=== PATIENT | female | born 1990 | race African-American/Black ===

== ENCOUNTER 2016-05-19 04:38 | Inpatient (IN) | payer OTHER ==
[2016-05-19] MEDS ORDERED: DEXTROSE 5%-LACTATED RINGERS 1,000 ML IV ONE (05:30)
[2016-05-19 05:56] LABS: BASOPHIL 0.2 % (0-2.0); EOSINOPHIL 1.3 % (0-4.5); MEAN PLT VOLUME 10.6 fl (7.5-11.1); NEUTROPHILS 62.9 % (42.8-82.8); PLATELET COUNT 151 K/MM3 (134-434); RDW 13.9 % (11.6-15.6)
--- NOTE | 2016-05-19 06:08 | PN ---
Progress Note (short form) - Note Progress Note: cx 4 cm 70 vx -2 mr, light mec , fhr cat mild variable, will apply scalp electrode , and revaluate
[2016-05-19 06:10] LABS: INR 0.99 (0.82-1.09); PROTHROMBIN TIME (PATIENT) 10.9 SEC (9.98-11.88)
[2016-05-19 06:13] LABS: ACTIVATED PTT 28.2 SECONDS (26.9-34.4)
[2016-05-19 06:30] LABS: ALBUMIN 3.1 g/dl (3.4-5.0); ANION GAP 13 (8-16); BILIRUBIN,TOTAL 0.2 mg/dL (0.2-1.0); CALCIUM 8.8 mg/dL (8.5-10.1); CO2 21 mmol/L (21-32); CREATININE 0.6 mg/dL (0.55-1.02); GLUCOSE,RANDOM 137 mg/dL (74-106); SGOT/AST 12 U/L (15-37); SGPT/ALT 12 U/L (12-78); TOT PROT 6.7 g/dl (6.4-8.2)
[2016-05-19] MEDS ORDERED: AMPICILLIN - 2 GM in SODIUM CHLORIDE 100 ML IVPB ONE (06:30)
[2016-05-19 06:31] LABS: ALK PHOS 138 U/L (45-117)
[2016-05-19 07:39] LABS: HIV 1 & 2 AB NEGATIVE; HIV 1 AGp24 NEGATIVE
[2016-05-19] MEDS ORDERED: BUTORPHANOL TARTRATE 1 MG/ML VIAL IVPUSH ONE (07:45)
[2016-05-19] MEDS ORDERED: PROMETHAZINE HCL 25 MG/1 ML VIAL IVPUSH ONE (07:45)
[2016-05-19 07:51] VITALS: BMI 35.9
[2016-05-19] MEDS ORDERED: OXYTOCIN 15 UNITS/ LR 250 ML 250 ML IV SCH (08:00)
--- NOTE | 2016-05-19 08:54 | HP ---
Past Medical History - Primary Care Physician PCP:: Efrain Wayne - Admission Chief Complaint: 39 weeks , rom, labor History of Present Illness: 25 yo f edc by 05/24/16 c/o rom since 420 am today, pain since 3 15 am, no bleeding , no fever , cx 4 cm 75 vx -2 fhr cat 1, light mec stain af , no care since mar 2016 History Source: Patient Limitations to Obtaining History: No Limitations - Past Medical History Pulmonary: Yes: Asthma (on no meds) ...: 2 ...Para: 1 ...Term: 1 ... Weeks Gestation by Dates: 39.1 ...EDC by Dates: 05/24/16 - Past Surgical History Hx Myomectomy: No Hx Transabdominal Cerclage: No - Smoking History Smoking history: Never smoked Have you smoked in the past 12 months: No Aproximately how many cigarettes per day: 0 - Alcohol/Substance Use Hx Alcohol Use: No - Social History Usual Living Arrangement: Yes: With Spouse History of Recent Travel: No Home Medications - Allergies Allergies/Adverse Reactions: Allergies Allergy/AdvReac Type Severity Reaction Status Date / Time No Known Allergies Allergy Verified 05/19/16 08:18 - Home Medications Home Medications: Ambulatory Orders Vit Calc,Iron,Folic [ Vitamins] 1 each PO DAILY 05/19/16 Review of Systems - Review of Systems Constitutional: reports: No Symptoms Eyes: reports: No Symptoms HENT: reports: No Symptoms Neck: reports: No Symptoms Cardiovascular: reports: No Symptoms Respiratory: reports: No Symptoms Gastrointestinal: reports: No Symptoms Genitourinary: reports: No Symptoms Breasts: reports: No Symptoms Reported Musculoskeletal: reports: No Symptoms Integumentary: reports: No Symptoms Neurological: reports: No Symptoms Endocrine: reports: No Symptoms Hematology/Lymphatic: reports: No Symptoms Psychiatric: reports: No Symptoms Physical Exam - Maternity Vital Signs: Vital Signs Temperature 97.8 F 05/19/16 04:38 Pulse Rate 97 H 05/19/16 04:38 Respiratory Rate 20 05/19/16 04:38 Blood Pressure 124/65 05/19/16 04:38 O2 Sat by Pulse Oximetry (%) Constitutional: Yes: Well Nourished, No Distress, Calm Eyes: Yes: WNL, Conjunctiva Clear, EOM Intact HENT: Yes: WNL, Atraumatic, Normocephalic Neck: Yes: WNL, Supple, Trachea Midline Cardiovascular: Yes: WNL, Regular Rate and Rhythm Breast(s): Yes: WNL - Abdominal Exam/OB Number of Fetuses: Single Presentation: Vertex Contractions: Yes Regularity: Irregular Intensity: Mod/Strong Monitor Mode: External Heart Rate Location: [facility] Category: I Accelerations: Non-Uniform Decelerations: None - Vaginal Exam/OB Vaginal Bleediing: No Speculum Exam: No Dilatation (cm): 4 cm Effacement (%): 75 Amniotic Membrane Status: Ruptured Nitrazine Test: Positive Amniotic Fluid: Yes: Meconium Stained Presentation: Vertex/Position Station: -2 - Physical Exam Musculoskeletal: Yes: WNL Extremities: Yes: WNL Edema: LLE: Trace, RLE: Trace Deep Tendon Reflex Grade: Normal +2 ...Motor Strength: WNL Psychiatric: Yes: WNL - Labs Lab Results: CBC, BMP 05/19/16 05:30 05/19/16 05:30 Problem List - Problems (1) with 39 completed weeks gestation Code(s): Z3A.39 - 39 WEEKS GESTATION OF (2) membrane rupture Code(s): SFJ4897 - (3) Labor established Code(s): QWU6335 - Assessment/Plan admit, heart monitoring, if irregular contraction may benefit low dose pitocin
[2016-05-19] MEDS ORDERED: FENTANYL/BUPIVACAINE/NS/PF - PCEA - 50 ML DISP.SYRIN EP SCH (09:30)
[2016-05-19] MEDS ORDERED: TUBERCULIN PPD 5 TU/0.1ML SYRINGE (IN PATIENT USE ONLY) ID ONE (11:00)
[2016-05-19] MEDS ORDERED: oxyCODONE HCL 5 MG TABLET PO PRN (11:17)
[2016-05-19] MEDS ORDERED: BISACODYL 10 MG SUPP.RECT RC PRN (11:17)
[2016-05-19] MEDS ORDERED: WITCH HAZEL 50% (TUCKS) 40 PAD/JAR PAD TP PRN (11:17)
[2016-05-19] MEDS ORDERED: BENZOCAINE 20% 57 GM BOTTLE TP PRN (11:17)
[2016-05-19] MEDS ORDERED: BENZOCAINE 28 GM HEMORRHOIDAL OINTMENT TP PRN (11:17)
[2016-05-19] MEDS ORDERED: METHYLERGONOVINE MALEATE 0.2 MG/1 ML AMP IM PRN (11:17)
[2016-05-19] MEDS ORDERED: D5W-LR W/ 20 UNITS OXYTOCIN 1,000 ML IV SCH (11:30)
[2016-05-19 11:53] LABS: ARTERIAL BLOOD GAS BASE EXCESS -2.2 meq/l (-2-2); ARTERIAL BLOOD GAS HCO3 26.3 meq/L (22-26); ARTERIAL BLOOD GAS pH 7.25 (7.35-7.45)
[2016-05-19 11:55] LABS: PT. ON O2? NO
[2016-05-19 11:56] LABS: ARTERIAL BLOOD GAS PO2 14.6 mmHg (80-100)
[2016-05-19] MEDS ORDERED: CARBOPROST TROMETHAMINE 250 MCG/ML AMPUL IM ONE (11:56)
[2016-05-19 11:57] LABS: ARTERIAL BLD GAS O2 SATURATION 21.5 % (90-98.9)
[2016-05-19 11:58] LABS: VENOUS PH 7.36 (7.31-7.41)
[2016-05-19 11:59] LABS: VENOUS BLOOD GAS HCO3 22.8 meq/L (22-29)
--- NOTE | 2016-05-19 12:01 | PN ---
Progress Note (short form) - Note Progress Note: was clalled to evaluate post with vaginal bleeding, vss , awake no laceration, uterus explored manually, no tissue, 200 cc clots removed, uterus buggy plan hemobate Problem List - Problems (1) with 39 completed weeks gestation Code(s): Z3A.39 - 39 WEEKS GESTATION OF (2) membrane rupture Code(s): [id number] - (3) Labor established Code(s): NPQ2859 -
[2016-05-19] MEDS ORDERED: METHYLERGONOVINE MALEATE 0.2 MG/1 ML AMP IM ONE (14:12)
[2016-05-19 14:30] LABS: URINE MARIJUANA THC NEGATIVE ng/ml (CUTOFF=50)
[2016-05-19] MEDS: ACETAMINOPHEN 325 MG TABLET (FP) PO PRN ×2 (15:41→21:29)
[2016-05-19] MEDS: IBUPROFEN 600 MG TABLET (FP) PO PRN ×2 (15:42→21:30)
[2016-05-19 21:26] LABS: URINE APPEARANCE SLCLOUDY; URINE BILIRUBIN NEGATIVE (NEGATIVE); URINE COLOR YELLOW; URINE GLUCOSE (UA) NEGATIVE (NEGATIVE); URINE KETONE NEGATIVE (NEGATIVE); URINE NITRITE NEGATIVE (NEGATIVE); URINE UROBILINOGEN NEGATIVE E.U./dl (0.2-1.0)
[2016-05-19] MEDS: FERROUS SO4 325 MG TABLET (FP) PO SCH (21:31)
[2016-05-19 21:35] LABS: URINE BLOOD 3+ (NEGATIVE); URINE LEUK ESTERASE 1+ (NEGATIVE); URINE PROTEIN 1+ (NEGATIVE)
[2016-05-19 21:38] LABS: URINE MUCUS FEW; URINE RBC 3073 /hpf (0-3); URINE WBC 33 /hpf (3-5)
[2016-05-19 21:47] LABS: URINE MARIJUANA THC NEGATIVE ng/ml (CUTOFF=50)
[2016-05-20 08:50] VITALS: BP 116/69; PULSE 100; TEMP 97.7
[2016-05-20 08:56] LABS: BASOPHIL 0.5 % (0-2.0); EOSINOPHIL 2.3 % (0-4.5); MCH 28.9 pg (25.7-33.7); MCHC 33.8 g/dl (32.0-36.0); MEAN CELL VOLUME 85.4 fl (80-96); MEAN PLT VOLUME 9.6 fl (7.5-11.1); NEUTROPHILS 57.8 % (42.8-82.8); PLATELET COUNT 131 K/MM3 (134-434)
[2016-05-20] MEDS: FERROUS SO4 325 MG TABLET (FP) PO SCH (09:13)
[2016-05-20] MEDS: IBUPROFEN 600 MG TABLET (FP) PO PRN (09:14)
[2016-05-20] MEDS: ACETAMINOPHEN 325 MG TABLET (FP) PO PRN (09:14)
--- NOTE | 2016-05-20 09:26 | PN ---
Progress Note (short form) - Note Progress Note: ppd 1 doing well, no c/o voids ok CBC, BMP 05/20/16 08:00 05/19/16 05:30 Last Vital Signs Temp Pulse Resp BP Pulse Ox 97.7 F 100 H 20 116/69 100 05/20/16 08:49 05/20/16 08:49 05/20/16 08:49 05/20/16 08:49 05/19/16 12:00 abdomen soft, non tender, no cva uterus firm,non tender lochia mild , no excess vaginal bleeding no calf tenderness plan ambulate, observe Problem List - Problems (1) with 39 completed weeks gestation Code(s): Z3A.39 - 39 WEEKS GESTATION OF (2) membrane rupture Code(s): [id number] - (3) Labor established Code(s): [id number] -
[2016-05-20] MEDS ORDERED: PRENATAL VITAMINS W/ FOLIC ACID TABLET (FP) PO SCH (10:00)
[2016-05-20] MEDS ORDERED: SENNOSIDES/DOCUSATE COMBO (SENNA PLUS) TABLET (UD) PO PRN (22:00)
--- NOTE | 2016-06-19 11:23 | DS ---
Physical Exam-[employer] Vital Signs: Vital Signs Temperature 97.7 F 05/20/16 08:49 Pulse Rate 100 H 05/20/16 08:49 Respiratory Rate 20 05/20/16 08:49 Blood Pressure 116/69 05/20/16 08:49 O2 Sat by Pulse Oximetry (%) 100 05/19/16 12:00 Constitutional: Yes: Well Nourished, No Distress, Calm Eyes: Yes: WNL, Conjunctiva Clear, EOM Intact HENT: Yes: WNL, Atraumatic, Normocephalic Neck: Yes: WNL, Supple, Trachea Midline Cardiovascular: Yes: WNL, Regular Rate and Rhythm Respiratory: Yes: WNL, Regular, CTA Bilaterally Gastrointestinal: Yes: WNL ...Rectal Exam: Yes: WNL Renal/: Yes: WNL ....Post : Yes: Uterus firm, Uterus non-tender, Slight lochia rubra Breast(s): Yes: WNL Musculoskeletal: Yes: WNL Extremities: Yes: WNL Edema: No Integumentary: Yes: WNL Neurological: Yes: WNL, Alert, Oriented ...Motor Strength: WNL Psychiatric: Yes: WNL, Alert, Oriented Labs: CBC, BMP 05/20/16 08:00 05/19/16 05:30 Delivery - Delivery Vaginal Delivery: Spontaneous (no complication) Type of Anesthesia: Epidural Episiotomy/Laceration: None EBL (cc): 500 Delivery, Single - Stages of Labor Date 1st Stage Initiatied: 05/19/16 Time 1st Stage Initiated: 03:00 Date 2nd Stage Initiated: 05/19/16 Time 2nd Stage Initiated: 10:55 Date of Delivery: 05/19/16 Time of Delivery: 10:58 Time Placenta Delivered: 11:05 Placenta: Yes: Spontaneous - Condition of Infant Operating Room Coordinator/Machine Bunch Maker Present: No Infant Gender: Female Position: Left, OA Total Hours ROM (Hrs/Mins): 6H5M - 1 Minute Total Score: 9 5 Minutes Total Score: 9 - [place] Feeding Plan Initial Plan: Elected not to breastfeed exclusively throughout hospitalization Discharge Summary Reason For Visit: LABOR ADMIT Procedures: Principal: Condition: Good - Instructions Diet, Activity, Other Instructions: regular diet, follow up office 4 weeks Referrals: Efrain Wayne MD [Staff Physician] - Disposition: HOME - Home Medications Comprehensive Discharge Medication List: Ambulatory Orders Vit Calc,Iron,Folic [ Vitamins] 1 each PO DAILY 05/19/16 Ibuprofen [Motrin -] 600 mg PO QID #28 tablet 05/20/16
== END 2016-05-20 14:30 | disposition home or self-care (01) | DRG 774 ==
LOC: JLDR 04:38 → J3W 15:11
PROVIDERS: ADMIT Obstetrics & Gynecology; ATTEND Obstetrics & Gynecology
PROC: 10E0XZZ Delivery of Products of Conception, External Approach (ICD-10-PCS; principal; 2016-05-19)
PROC: 0UC97ZZ Extirpation of Matter from Uterus, Via Natural or Artificial Opening (ICD-10-PCS; 2016-05-19)
DX: O72.1 Other immediate postpartum hemorrhage (principal); O75.89 Other specified complications of labor and delivery; J45.909 Unspecified asthma, uncomplicated; Z3A.39 39 weeks gestation of pregnancy; Z37.0 Single live birth
CPT/HCPCS: 36415; 36600; 59409; 80053; 80307; 81003; 81015; 82803; 85025; 85610; 85730; 86593; 86762; 86850; 86900; 86901; 87340; 87389

== ENCOUNTER 2016-08-22 14:09 | Emergency (ER) | payer OTHER ==
[2016-08-22 14:13] VITALS: BP 135/85; PULSE 83; TEMP 98.5; BMI 27.2
[2016-08-22] MEDS ORDERED: ALBUTEROL SO4 2.5/IPRATROPIUM 0.5 INH SOL 3 ML VIAL.NEB. NEB ONE ×2 (15:13→15:19)
[2016-08-22] MEDS ORDERED: DEXAMETHASONE 4 MG TABLET (FP) PO ONE (15:20)
[2016-08-22] MEDS ORDERED: DEXAMETHASONE 4 MG TABLET (FP) ONE (15:30)
--- NOTE | 2016-08-22 15:51 | PDOC ---
History of Present Illness - General Chief Complaint: Asthma Stated Complaint: Asthma Time Seen by Provider: 08/22/16 15:04 - History of Present Illness Initial Comments: 08/22/16 19:55 Pt comes to ED with compaints of SOB, using nebulizer every night for the past week. Complains of wheezing, shortness of breath, and unproductive dry cough. Never hospitalized or intubated for her asthma. Denies fevers ear ache, sore throat, pain. No history of recent illness, no sick contacts, no recent travel. Denies smoking or any other exposures. Suffers from seasonal allergies, not using antihistamine relief. Past History - Past Medical History Allergies/Adverse Reactions: Allergies Allergy/AdvReac Type Severity Reaction Status Date / Time No Known Allergies Allergy Verified 08/22/16 14:55 Home Medications: Ambulatory Orders Albuterol 0.083% Nebulizer Radha [Ventolin 0.083% Nebulizer Soln -] 1 amp NEB Q4H #10 amp 08/22/16 Albuterol 0.083% Nebulizer Radha [Ventolin 0.083%] 1 neb NEB Q4H 08/22/16 Albuterol Sulfate Inhaler - [Ventolin HFA Inhaler -] 1 - 2 inh PO Q4H #1 inhaler 08/22/16 Prednisone 20 mg PO BID #20 tablet 08/22/16 Asthma: Yes Cancer: No Cardiac Disorders: No Diabetes: No HTN: No Seizures: Yes ("thyroid problems") Thyroid Disease: No - Reproductive History (#): 3 Para: 1 Therapeutic (s) & number: Yes (3) - Immunization History Immunization Up to Date: Yes - Psycho/Social/Smoking Cessation Hx Anxiety: No Suicidal Ideation: No Smoking Status: No Smoking History: Never smoked Have you smoked in the past 12 months: No Number of Cigarettes Smoked Daily: 0 Cigars Per Day: 0 Information on smoking cessation initiated: No Hx Alcohol Use: No Drug/Substance Use Hx: No Substance Use Type: None Hx Substance Use Treatment: No Review of Systems - Review of Systems Able to Perform ROS?: Yes Is the patient limited Tuvaluan proficient: No Constitutional: Yes: See HPI HEENTM: Yes: See HPI Respiratory: Yes: See HPI *Physical Exam - Vital Signs Last Vital Signs Temp Pulse Resp BP Pulse Ox 98.5 F 83 18 135/85 98 08/22/16 14:11 08/22/16 14:11 08/22/16 14:11 08/22/16 14:11 08/22/16 14:11 - Physical Exam General Appearance: Yes: Appropriately Dressed, Apparent Distress, Mild Distress HEENT: positive: EOMI, JERRI, Normal ENT Inspection, Normal Voice, TMs Normal, Pharynx Normal. negative: Scleral Icterus (R), Scleral Icterus (L), Rhinorrhea , Sinus Tenderness Neck: positive: Trachea midline, Supple. negative: Tender Respiratory/Chest: positive: Decreased Breath Sounds, Wheezing (inspiratory wheezing at the bases) Cardiovascular: positive: Regular Rhythm, Regular Rate, S1, S2 Lymphatic: negative: Adenopathy Integumentary: positive: Normal Color, Dry, Warm Neurologic: positive: senior cytotechnologist II-XII NML intact, Fully Oriented, Alert, Normal Mood/ Affect, Normal Response, Motor Strength 09/07 ED Treatment Course - Medications Given in the ED: ED Medications Discontinued Medications Generic Name Dose Route Start Last Admin Trade Name Oriana PRN Reason Stop Dose Admin Albuterol/Ipratropium 1 amp 08/22/16 15:13 08/22/16 15:20 Duoneb - NEB 08/22/16 15:14 1 amp ONCE ONE Administration Dexamethasone 10 mg 08/22/16 15:20 08/22/16 15:32 Decadron - PO 08/22/16 15:21 10 mg ONCE ONE Administration Medical Decision Making - Medical Decision Making 08/22/16 08/22/16 15:30 Giving duoneb and 10mg of decadron; will re-evaluate 08/22/16 16:30 Breathing much improved after one duoneb and decadron, wheezing resolved. States that she is improved and is ready for discharge. *DC/Admit/Observation/Transfer Diagnosis at time of Disposition: Asthma exacerbation, mild - Discharge Dispostion Disposition: HOME Condition at time of disposition: Improved Admit: No - Prescriptions Prescriptions: Prednisone 20 mg PO BID #20 tablet Albuterol 0.083% Nebulizer Radha [Ventolin 0.083% Nebulizer Soln -] 1 amp NEB Q4H #10 amp Albuterol Sulfate Inhaler - [Ventolin HFA Inhaler -] 1 - 2 inh PO Q4H #1 inhaler - Referrals Referrals: Hayden Kamara MD [Staff Physician] - - Patient Instructions Printed Discharge Instructions: Asthma -- Adult Additional Instructions: You have an asthma exacerbation. Use the nebulizer treatments at night before bed. You were also prescribed an albuterol inhaler to be used during the day. Do not take both the inhaler and nebulizer at the same time. Take the steroids as prescribed. Follow up with a primary care doctor within a week. If you become more short of breath, cannot breathe, or have chest pain, return to the ED - Post Discharge Activity Work/School Note: Back to Work
== END 2016-08-22 16:25 | disposition home or self-care (01) ==
LOC: JERFT 14:09
PROC: 3E0F7GC Introduction of Other Therapeutic Substance into Respiratory Tract, Via Natural or Artificial Opening (ICD-10-PCS; principal; 2016-08-22)
DX: J45.901 Unspecified asthma with (acute) exacerbation (principal)
CPT/HCPCS: 99281-25

== ENCOUNTER 2018-01-26 21:22 | Emergency (ER) | payer OTHER ==
[2018-01-26 21:46] VITALS: BP 152/92; PULSE 95; TEMP 98.5; BMI 34.4
--- NOTE | 2018-01-26 21:46 | PDOC ---
History of Present Illness - General Chief Complaint: Vomiting/Diarrhea Stated Complaint: VOMITING/DIARRHEA Time Seen by Provider: 01/26/18 21:45 History Source: Patient - History of Present Illness Timing/Duration: reports: other (this am) Past History - Past Medical History Allergies/Adverse Reactions: Allergies Allergy/AdvReac Type Severity Reaction Status Date / Time No Known Allergies Allergy Verified 12/23/17 23:35 Home Medications: Ambulatory Orders Albuterol 0.083% Nebulizer Radha [Ventolin 0.083% Nebulizer Soln -] 1 amp NEB Q4H #10 amp 08/22/16 Albuterol 0.083% Nebulizer Radha [Ventolin 0.083%] 1 neb NEB Q4H 08/22/16 Albuterol Sulfate Inhaler - [Ventolin HFA Inhaler -] 1 - 2 inh PO Q4H #1 inhaler 08/22/16 Prednisone 20 mg PO BID #20 tablet 08/22/16 Methylprednisolone [Medrol Dose Jus] 4 mg PO ASDIR #21 tablet 12/24/17 Asthma: Yes Cancer: No Cardiac Disorders: No COPD: No Diabetes: No HTN: No Seizures: Yes ("thyroid problems") Thyroid Disease: No - Reproductive History (#): 3 Para: 1 Therapeutic (s) & number: Yes (3) - Immunization History Immunization Up to Date: Yes - Suicide/Smoking/Psychosocial Hx Smoking Status: No Smoking History: Never smoked Have you smoked in the past 12 months: No Number of Cigarettes Smoked Daily: 0 Cigars Per Day: 0 Hx Alcohol Use: No Drug/Substance Use Hx: No Substance Use Type: None Hx Substance Use Treatment: No Review of Systems - Review of Systems Constitutional: No: Chills, Fever ABD/GI: Yes: Diarrhea, Nausea, Vomiting. No: Blood Streaked Bowels, Rectal Bleeding, Abdominal cramping *Physical Exam - Physical Exam General Appearance: Yes: Appropriately Dressed. No: Apparent Distress Neck: positive: Supple Respiratory/Chest: negative: Respiratory Distress Gastrointestinal/Abdominal: positive: Soft. negative: Tender Integumentary: positive: Dry, Warm Neurologic: positive: Fully Oriented, Alert, Normal Mood/Affect Medical Decision Making - Medical Decision Making 01/26/18 21:45 27-year-old female, morbidly obese, here with nausea/vomiting and diarrhea this am that has since improved. No abd pain, f/c. States she ate "greasy" Ritesh food last night and suspects that this is the cause of her symptoms. Also requesting a work note as she had to leave work early today. Well-appearing and stable with unremarkable exam. DC to maintain adequate hydration and to return for worsening of symptoms *DC/Admit/Observation/Transfer Diagnosis at time of Disposition: Indigestion - Discharge Dispostion Disposition: HOME Condition at time of disposition: Improved - Referrals - Patient Instructions Printed Discharge Instructions: Indigestion Additional Instructions: Maintain adequate hydration. If symptoms worsen, return to ER - Post Discharge Activity Forms/Work/School Notes: Back to Work
== END 2018-01-26 22:25 | disposition home or self-care (01) ==
LOC: JERFT 21:22
DX: K30 Functional dyspepsia (principal); J45.909 Unspecified asthma, uncomplicated
CPT/HCPCS: 99281-25

== ENCOUNTER 2021-01-19 08:48 | Emergency (ER) | payer OTHER ==
[2021-01-19 09:12] VITALS: BP 150/102; PULSE 91; TEMP 98.1; BMI 33.7
[2021-01-19] MEDS: ALBUTEROL SO4 2.5/IPRATROPIUM 0.5 INH SOL 3 ML VIAL.NEB. NEB SCH ×4 (09:45→10:30)
[2021-01-19] MEDS ORDERED: DEXAMETHASONE 4 MG TABLET (FP) PO ONE (09:45)
[2021-01-19] MEDS ORDERED: DEXAMETHASONE SOD PHOSPHATE 10 MG/1 ML VIAL ONE (09:52)
[2021-01-19] MEDS ORDERED: MAGNESIUM 1GM/D5W - 2 GM/200 ML IVPB IVPB ONE (11:31)
== END 2021-01-19 11:53 | disposition home or self-care (01) ==
LOC: JER 08:48 → JERFT 08:48 → JER 11:53
PROC: 3E033NZ Introduction of Analgesics, Hypnotics, Sedatives into Peripheral Vein, Percutaneous Approach (ICD-10-PCS; principal; 2021-01-19)
DX: J45.901 Unspecified asthma with (acute) exacerbation (principal)
CPT/HCPCS: 71046-TC-FY; 99284-25

== ENCOUNTER 2023-12-09 10:07 | Inpatient (IN) | payer BC ==
[2023-12-09 12:05] LABS: EPI CELLS >36 /uL (0-25.1); HYALINE CASTS 4 /uL (0-3.1); PH,URINE 5.5 (5.0-8.0); URINE APPEARANCE CLOUDY; URINE BACTERIA 899 /uL (0-1359); URINE BILIRUBIN NEGATIVE (NEGATIVE); URINE COLOR DK YELLOW; URINE GLUCOSE (UA) NEGATIVE (NEGATIVE); URINE KETONE NEGATIVE (NEGATIVE); URINE LEUK ESTERASE NEGATIVE (NEGATIVE); URINE NITRITE NEGATIVE (NEGATIVE); URINE PROTEIN 1+ (NEGATIVE); URINE UROBILINOGEN 0.2 mg/dL (0.2-1.0); URINE WBC 12 /uL (0-25.8)
[2023-12-09] MEDS: LACTATED RINGERS SOLUTION 500 ML IV ONE ×2 (13:50→15:00)
[2023-12-09 14:43] LABS: BASO % 0.7 % (0-2.0); EOS % 1.4 % (0-4.5); HEMATOCRIT 36.9 % (32.4-45.2); HEMOGLOBIN 12.8 GM/dL (10.7-15.3); LYMPH % 28.7 % (8-40); MCH 29.4 pg (25.7-33.7); MCHC 34.7 g/dl (32.0-36.0); MEAN CELL VOLUME 84.6 fl (80-96); MEAN PLT VOLUME 9.4 fl (7.5-11.1); MONO % 11.9 % (3.8-10.2); NEUT % 57.3 % (42.8-82.8); PLATELET COUNT 169 10^3/uL (134-434); RBC 4.36 M/mm3 (3.60-5.2); RDW 14.2 % (11.6-15.6); WHITE BLOOD COUNT 7.3 K/mm3 (4.0-10.0)
[2023-12-09 14:45] LABS: URINE RBC 108.8 /uL (0-23.9)
[2023-12-09 14:47] LABS: URINE CRYSTALS PRESENT /hpf
[2023-12-09 14:56] LABS: INR 0.92 (0.83-1.09); PROTHROMBIN TIME (PATIENT) 10.6 SEC (9.7-13.0)
[2023-12-09 14:59] LABS: ACTIVATED PTT 28.5 SECONDS (25.2-36.5)
[2023-12-09 15:03] LABS: POTASSIUM 4.2 mmol/L (3.5-5.1)
[2023-12-09 15:06] LABS: ALBUMIN 3.1 g/dl (3.4-5.0); BLOOD UREA NITROGEN 15.9 mg/dL (7-18)
[2023-12-09 15:08] LABS: URIC ACID 4.5 mg/dL (2.6-7.2)
[2023-12-09 15:09] LABS: CREATININE 0.6 mg/dL (0.55-1.3)
[2023-12-09 15:10] LABS: BILIRUBIN,TOTAL 0.4 mg/dL (0.2-1)
[2023-12-09 15:11] LABS: TOT PROT 6.8 g/dl (6.4-8.2)
[2023-12-09 16:59] VITALS: BMI 34.4
[2023-12-09] MEDS: DINOPROSTONE 10 MG VAGINAL SUPPOSITORY VG ONE (17:50)
[2023-12-09] MEDS: PENICILLIN G POTASSIUM 5,000,000 PRE-DOCK IN NS 250 ML IVPB ONE (18:00)
[2023-12-09] MEDS: LACTATED RINGERS SOLUTION 1,000 ML/1,000 ML INFUS.BAG IV SCH (18:00)
[2023-12-09 18:17] LABS: HIV INTERPRETATION NEGATIVE (NEGATIVE)
[2023-12-09 19:15] LABS: COCAINE, UR NEGATIVE (NEGATIVE); METHADONE, UR NEGATIVE (NEGATIVE); URINE AMPHETAMINES NEGATIVE (NEGATIVE); URINE BARBITURATES NEGATIVE (NEGATIVE); URINE BENZODIAZEPINES NEGATIVE (NEGATIVE)
[2023-12-09 19:16] LABS: PHENCYCLIDINE,URINE NEGATIVE (NEGATIVE)
[2023-12-09 19:46] LABS: OPIATES, URI NEGATIVE (NEGATIVE)
[2023-12-09] MEDS ORDERED: OXYTOCIN 30 UNITS in 0.9% NS 30 UNIT/500 ML INFUS.BAG IVPB ONE (21:31)
[2023-12-09] MEDS: OXYTOCIN 30 UNITS in 0.9% NS 30 UNIT/500 ML INFUS.BAG IVPB SCH (21:35)
[2023-12-09] MEDS: PENICILLIN G POTASSIUM 2,500,000 UNIT in SODIUM CHLORIDE 100 ML IVPB SCH (22:05)
[2023-12-09] MEDS ORDERED: FENTANYL/BUPIVACAINE/NS/PF - PCEA - 50 ML DISP.SYRIN EP ONE (22:27)
[2023-12-09] MEDS: FENTANYL/BUPIVACAINE/NS/PF - PCEA - 50 ML DISP.SYRIN EP SCH (23:00)
[2023-12-09] MEDS ORDERED: NALOXONE HCL 0.4 MG/ML VIAL IVPUSH PRN (23:12)
[2023-12-10] MEDS ORDERED: NIFEdipine E.R. 30 MG TABLET PO ONE (00:08)
[2023-12-10] MEDS: NIFEdipine E.R. 30 MG TABLET PO ONE ×2 (00:09→21:48)
[2023-12-10] MEDS ORDERED: LIDOCAINE HCL 1% PRESERVATIVE FREE - 30ML VIAL ONE (02:26)
[2023-12-10] MEDS ORDERED: OXYTOCIN 20 UNITS in 0.9% NS 20 UNIT/1,000 ML INFUS.BAG IV ONE (02:27)
[2023-12-10] MEDS ORDERED: FENTANYL/BUPIVACAINE/NS/PF - PCEA - 50 ML DISP.SYRIN EP ONE (02:42)
[2023-12-10] MEDS: OXYTOCIN 20 UNITS in 0.9% NS 20 UNIT/1,000 ML INFUS.BAG IV SCH (03:35)
[2023-12-10] MEDS ORDERED: MISOPROSTOL 200 MCG TABLET ONE (03:36)
[2023-12-10] MEDS: MISOPROSTOL 200 MCG TABLET PV ONE (03:37)
[2023-12-10] MEDS ORDERED: WITCH HAZEL 50% (TUCKS) 40 PAD/JAR PAD TP PRN (03:50)
[2023-12-10] MEDS ORDERED: METHYLERGONOVINE MALEATE 0.2 MG/1 ML AMP IM PRN (03:50)
[2023-12-10] MEDS ORDERED: BENZOCAINE 20% 57 GM BOTTLE TP PRN (03:50)
[2023-12-10] MEDS ORDERED: ACETAMINOPHEN 325 MG TABLET (FP) PO PRN (03:50)
[2023-12-10] MEDS ORDERED: BENZOCAINE 28 GM HEMORRHOIDAL OINTMENT TP PRN (03:50)
[2023-12-10] MEDS ORDERED: BISACODYL 10 MG SUPP.RECT RC PRN (03:50)
[2023-12-10] MEDS ORDERED: oxyCODONE HCL 5 MG TABLET PO PRN (03:50)
[2023-12-10] MEDS ORDERED: IBUPROFEN 600 MG TABLET (FP) PO PRN (03:50)
[2023-12-10] MEDS: LABETALOL HCL 100 MG TABLET (FP) PO SCH (04:43)
[2023-12-10 04:54] LABS: CORD HCO3 21.2 mmHg (20-29); CORD PCO2 41.8 mmHg (30-78); CORD pH 7.324 (7.14-7.44)
[2023-12-10 04:55] LABS: CORD HCO3 22.2 mmHg (20-29); CORD PCO2 40.3 mmHg (30-78); CORD pH 7.359 (7.14-7.44)
[2023-12-10] MEDS ORDERED: NIFEdipine E.R. 30 MG TABLET PO SCH (10:00)
[2023-12-10] MEDS: NIFEdipine E.R. 30 MG TABLET PO SCH (10:52)
[2023-12-10] MEDS: MISOPROSTOL 200 MCG TABLET NR ONE (19:35)
[2023-12-10] MEDS: PENICILLIN G POTASSIUM 20,000,000 (20Mm) UNITS VIAL IVPB ONE (19:39)
[2023-12-11 06:17] LABS: BASO % 0.5 % (0-2.0); EOS % 3.3 % (0-4.5); HEMATOCRIT 30.4 % (32.4-45.2); HEMOGLOBIN 10.7 GM/dL (10.7-15.3); LYMPH % 41.3 % (8-40); MCH 30.1 pg (25.7-33.7); MCHC 35.2 g/dl (32.0-36.0); MEAN CELL VOLUME 85.4 fl (80-96); MEAN PLT VOLUME 9.7 fl (7.5-11.1); MONO % 7.1 % (3.8-10.2); NEUT % 47.8 % (42.8-82.8); PLATELET COUNT 148 10^3/uL (134-434); RBC 3.56 M/mm3 (3.60-5.2); WHITE BLOOD COUNT 8.4 K/mm3 (4.0-10.0)
[2023-12-11] MEDS: NIFEdipine E.R 60 MG TABLET PO SCH (09:47)
[2023-12-11 10:24] VITALS: RESP 16
[2023-12-11 15:20] VITALS: BP 129/88; PULSE 92; TEMP 98.3
[2023-12-11] MEDS ORDERED: SENNOSIDES/DOCUSATE COMBO (SENNA PLUS) TABLET (UD) PO PRN (22:00)
== END 2023-12-11 18:25 | disposition home or self-care (01) | DRG 560 ==
LOC: JDEL 10:07 → JLDR 15:45 → J3W 12-10 07:44
PROVIDERS: ADMIT Obstetrics & Gynecology Obstetrics; ATTEND Obstetrics & Gynecology Obstetrics
PROC: 3E0P7VZ Introduction of Hormone into Female Reproductive, Via Natural or Artificial Opening (ICD-10-PCS; 2023-12-09)
PROC: 10E0XZZ Delivery of Products of Conception, External Approach (ICD-10-PCS; principal; 2023-12-10)
DX: O10.92 Unspecified pre-existing hypertension complicating childbirth (principal); O99.820 Streptococcus B carrier state complicating pregnancy; Z3A.38 38 weeks gestation of pregnancy; Z37.0 Single live birth
CPT/HCPCS: 36415; 36600; 59025; 59409; 80053; 80307; 81003; 82803; 83615; 84550; 85025; 85610; 85730; 86780; 86850; 86900; 86901; 87389; 88307-TC